=== PATIENT | female | born 1975 | race Caucasian/White ===

== ENCOUNTER 2016-12-26 14:53 | Emergency (ER) | payer BC ==
--- NOTE | 2016-12-26 15:30 | NUR ---
NO ANSWER OUT IN ER LOBBY
--- NOTE | 2016-12-26 15:58 | NUR ---
NO ANSWER OUT IN ER LOBBY
== END 2016-12-26 14:57 | disposition left against medical advice (07) ==
LOC: MED 14:53
DX: R50.9 Fever, unspecified (principal); Z53.21 Procedure and treatment not carried out due to patient leaving prior to being seen by health care provider

== ENCOUNTER 2017-05-13 11:52 | Emergency (ER) | payer SELFPAY ==
[~2017-05-13] VITALS: Ht 162.6 cm; Wt 79.2 kg
[2017-05-13 11:55] VITALS: BP 127/86
--- NOTE | 2017-05-13 12:45 | NUR ---
41/F HERE FOR RT ANKLE PAIN x TODAY @0400. PT STATES SHE ROLLED HER RT ANKLE. PAIN 6/10 ACHING NON-RADIATING. PT PLACED A BOOT TO ANKLE FOR COMFORT. DENIES HX DENIES MEDS.
[2017-05-13 13:29] VITALS: BP 110/77
--- NOTE | 2017-05-13 13:32 | NUR ---
Patient discharged with v/s stable. Written and verbal after care instructions given and explained. Patient alert, oriented and verbalized understanding of instructions. Wheel Chair Assisted with to car. All questions addressed prior to discharge. ID band removed. Patient advised to follow up with PMD. Rx of motrin given. Patient educated on indication of medication including possible reaction and side effects. Opportunity to ask questions provided and answered.
== END 2017-05-13 13:32 | disposition home or self-care (01) ==
LOC: MED 11:52
DX: S93.491A Sprain of other ligament of right ankle, initial encounter (principal); X58.XXXA Exposure to other specified factors, initial encounter; Y93.89 Activity, other specified; Y92.89 Other specified places as the place of occurrence of the external cause; Y99.8 Other external cause status
CPT/HCPCS: 73610; 99284

== ENCOUNTER 2018-04-23 07:13 | Emergency (ER) | payer BC ==
[~2018-04-23] VITALS: Ht 160 cm; Wt 81.6 kg
[2018-04-23 07:16] VITALS: BP 125/83
--- NOTE | 2018-04-23 07:23 | NUR ---
PT AMBULATES W/ STEADY GAIT TO BED 6 AT THIS TIME. REPORT GIVEN TO SALO MONET
--- NOTE | 2018-04-23 07:28 | NUR ---
42 YO F BIB SELF W/ C/O "PALPITATIONS" X THIS MORNING WITH FEELING THOUGH SHE IS GOING TO "FAINT". PT REPORTS THAT SHE HAS NOT FAINTED YET, BUT IS WORRIED. RECENTLY BEGAN SEEING [employer], BUT IS STILL IN THE FIRST "SERIES OF TESTS". PT DENIES ANY FALLS, N/V/FEVER. AAO X4, GCS 15, AMBULATORY W/ STEADY GAIT. PT DENIES ANY DIZZINESS. PULSE 84 AT THIS TIME, SPEAKING IN FULL, COMPLETE SENTENCES. LS CLEAR THROUGHOUT. ABD SOFT NON-TENDER. NO OTHER C/O AT THIS TIME. ER MD MADE AWARE. WILL CONTINUE TO MONITOR. HX DENIES RX DENIES
--- NOTE | 2018-04-23 07:30 | NUR ---
Patient being evaluated by physician at bedside.
[2018-04-23] MEDS ORDERED: ASPIRIN 81 MG TAB.CHEW PO ONE (07:35)
--- NOTE | 2018-04-23 08:13 | NUR ---
LAB AT BEDSIDE
[2018-04-23 08:27] LABS: BASOPHILS % (AUTO) 0.5 % (0.0-2.0); EOSINOPHILS # (AUTO) 0.2 K/uL (0-0.4); EOSINOPHILS % (AUTO) 1.6 % (0.0-4.0); HEMATOCRIT 41.1 % (36-48); HEMOGLOBIN 13.5 g/dL (12.0-16.0); LYMPHOCYTES # (AUTO) 4.3 K/uL (2.5-16.5); LYMPHOCYTES % (AUTO) 42.3 % (20.5-51.1); MEAN CORPUSCULAR HEMOGLOBIN 27 pg (27-31); MEAN CORPUSCULAR HGB CONC 33 g/dL (33-37); MEAN CORPUSCULAR VOLUME 82.5 fL (80-94); MONOCYTES # (AUTO) 0.6 K/uL (0.8-1.0); MONOCYTES % (AUTO) 5.5 % (1.7-9.3); NEUTROPHILS # (AUTO) 5.1 K/uL (1.8-7.7); NEUTROPHILS % (AUTO) 50.1 % (42.2-75.2); PLATELET COUNT (AUTO) 299 K/uL (140-450); RED BLOOD CELL COUNT(AUTO) 4.98 MIL/uL (4.20-5.40); RED CELL DISTRIBUTION WIDTH 13.8 % (11.6-13.7); WHITE BLOOD COUNT (AUTO) 10.2 K/uL (4.8-10.8)
--- NOTE | 2018-04-23 08:27 | NUR ---
XRAY AT BEDSIDE
[2018-04-23] MEDS ORDERED: LORazepam 1 MG TAB PO ONE (08:40)
[2018-04-23 08:55] LABS: PROTHROMBIN TIME 9.5 secs (10.8-13.4)
[2018-04-23 09:00] LABS: ALBUMIN 3.4 g/dL (3.4-5.0); ANION GAP 7.7 (8-16); CARBON DIOXIDE 25.7 mmol/L (21-32); CREATININE 0.6 mg/dL (0.6-1.3); POTASSIUM 4.4 mmol/L (3.5-5.1); TOTAL BILIRUBIN 0.1 mg/dL (0.0-1.0)
--- NOTE | 2018-04-23 09:00 | NUR ---
PT RESTING IN BED APPEARS TO BE SLEEPING IN NO APPEAREND DISTRESS, RR EVEN AND UNLABORED.
[2018-04-23 09:07] LABS: FREE T4 (FREE THYROXINE) 0.94 ng/dL (0.76-1.46); THYROID STIMULATING HORMONE 0.97 uIU/mL (0.34-3.74)
--- NOTE | 2018-04-23 09:40 | NUR ---
PT RESTING IN BED APPEARS TO BE SLEEPING IN NO APPEAREND DISTRESS, RR EVEN AND UNLABORED.
[2018-04-23 09:47] LABS: BARBITURATE, URINE NEG. ng/ml (NEG <=200); BENZODIAZEPINE, URINE NEG. ng/mL (NEG <=200); CANNABINOID, URINE NEG. ng/mL (NEG <=50); COCAINE, URINE NEG. ng/mL (NEG <=300); OPIATE, URINE NEG. ng/mL (NEG <=2000); PHENCYCLIDINE SCREEN,URINE NEG. ng/mL (NEG <=25)
[2018-04-23 10:11] VITALS: BP 120/80
--- NOTE | 2018-04-23 10:11 | NUR ---
Patient discharged with v/s stable. Written and verbal after care instructions given and explained. Patient alert, oriented and verbalized understanding of instructions. Ambulatory with steady gait. All questions addressed prior to discharge. ID band removed. Patient advised to follow up with PMD. Rx of XANEX given. Patient educated on indication of medication including possible reaction and side effects. Opportunity to ask questions provided and answered.
== END 2018-04-23 10:11 | disposition home or self-care (01) ==
LOC: MED 07:13
DX: R00.2 Palpitations (principal); F43.9 Reaction to severe stress, unspecified; F41.9 Anxiety disorder, unspecified
CPT/HCPCS: 36415; 71045; 80053; 80305; 81002; 81025; 83735; 83880; 84439; 84443; 84484; 85025; 85610; 85730; 93005; 99285; Q0092

== ENCOUNTER 2018-09-26 19:28 | Emergency (ER) | payer BC ==
[~2018-09-26] VITALS: Ht 162.6 cm; Wt 81.6 kg
[2018-09-26 19:42] VITALS: BP 122/78
--- NOTE | 2018-09-26 19:44 | NUR ---
Note undone in EDM - 09/26/18 at 2004 by MEDJ PT PRESENTS TO ED WITH TINGLING OF LIPS AND BILAT HANDS, FEELING ANCTIOUS. PT STATES HX OF DMII AND ALCOHOLISM. X4 DAY DRINKING ALIDA THAT ENDED ON 09/24/18. VSS. POSITIONED IN BED FOR COMFORT. ER AWARE. CONTINUE TO MONITOR.
--- NOTE | 2018-09-26 19:44 | NUR ---
TO BED, # 1 AMBULATORY
--- NOTE | 2018-09-26 19:44 | NUR ---
PT PRESENTS TO ED WITH COUGH X3 DAYS. PT STATES TAKING MEDICATIONS AT HOME TO RELIEVE COUGH. VSS. LUNGS CLEAR BILAT. AFEBRILE. O2SAT 99% AT RA. WHEEZING HEARD WITH COUGH. ER MD AWARE. CONTINUE TO MONITOR.
[2018-09-26 21:10] VITALS: BP 118/66
--- NOTE | 2018-09-26 21:10 | NUR ---
Patient discharged with v/s stable. Written and verbal after care instructions given and explained. Patient alert, oriented and verbalized understanding of instructions. Ambulatory with steady gait. All questions addressed prior to discharge. ID band removed. Patient advised to follow up with PMD. Rx of Promethazine and Augmentin given. Patient educated on indication of medication including possible reaction and side effects. Opportunity to ask questions provided and answered.
== END 2018-09-26 21:10 | disposition home or self-care (01) ==
LOC: MED 19:28
DX: J20.9 Acute bronchitis, unspecified (principal)
CPT/HCPCS: 99283

== ENCOUNTER 2019-01-20 07:44 | Emergency (ER) | payer BC ==
[~2019-01-20] VITALS: Ht 162.6 cm; Wt 82.7 kg
[2019-01-20 07:46] VITALS: BP 131/100
[2019-01-20] MEDS ORDERED: NACL 0.9% 1,000 ML IV ONE (08:01)
[2019-01-20] MEDS ORDERED: NACL 0.9% 1,000 ML IV SCH (08:01)
--- NOTE | 2019-01-20 08:02 | NUR ---
PT C/O OF DIZZINESS AND PALPITATION AND STATES SX RELATED TO STRESS. DENIES N/V/D; SKIN IS PINK/WARM/DRY; AAOX4 WITH EVEN AND STEADY GAIT; LUNGS CLEAR BL; HR EVEN AND REGULAR; PT DENIES ANY FEVER, CP, SOB, OR COUGH AT THIS TIME; PATIENT STATES PAIN OF 0/10 AT THIS TIME; VSS; PATIENT POSITIONED FOR COMFORT; HOB ELEVATED; BEDRAILS UP X1; BED DOWN. ER MD MADE AWARE OF PT STATUS.
[2019-01-20] MEDS ORDERED: LORazepam 1 MG TAB PO ONE (08:05)
--- NOTE | 2019-01-20 08:20 | NUR ---
PT WANTS TO HOLD ATIVAN AFTER REACHING OUT HER SON.
[2019-01-20 08:28] LABS: BASOPHILS % (AUTO) 0.4 % (0.0-2.0); EOSINOPHILS # (AUTO) 0.2 K/uL (0-0.4); HEMATOCRIT 40.4 % (36-48); HEMOGLOBIN 13.4 g/dL (12.0-16.0); LYMPHOCYTES % (AUTO) 41.4 % (20.5-51.1); MEAN CORPUSCULAR HEMOGLOBIN 27 pg (27-31); MEAN CORPUSCULAR HGB CONC 33 g/dL (33-37); MONOCYTES # (AUTO) 0.6 K/uL (0.8-1.0); MONOCYTES % (AUTO) 6.2 % (1.7-9.3); NEUTROPHILS # (AUTO) 4.9 K/uL (1.8-7.7); PLATELET COUNT (AUTO) 359 K/uL (140-450); RED BLOOD CELL COUNT(AUTO) 4.93 MIL/uL (4.20-5.40); RED CELL DISTRIBUTION WIDTH 14.1 % (11.6-13.7); WHITE BLOOD COUNT (AUTO) 9.7 K/uL (4.8-10.8)
[2019-01-20 08:37] LABS: BARBITURATE, URINE NEG. ng/ml (NEG <=200); BENZODIAZEPINE, URINE POS. ng/mL (NEG <=200); CANNABINOID, URINE NEG. ng/mL (NEG <=50); COCAINE, URINE NEG. ng/mL (NEG <=300); OPIATE, URINE NEG. ng/mL (NEG <=2000); PHENCYCLIDINE SCREEN,URINE NEG. ng/mL (NEG <=25)
[2019-01-20 08:38] LABS: BILIRUBIN,URINE NEGATIVE (NEGATIVE); BLOOD, URINE NEGATIVE (NEGATIVE); COLOR,URINE YELLOW (YELLOW); LEUKOCYTE ESTERASE ,URINE NEGATIVE (NEGATIVE); NITRITE, URINE NEGATIVE (NEGATIVE); UGLUCOSE NEGATIVE (NEGATIVE)
[2019-01-20 08:40] LABS: ANION GAP 9.9 (8-16); CREATININE 0.9 mg/dL (0.6-1.3); POTASSIUM 3.9 mmol/L (3.5-5.1)
[2019-01-20 08:45] LABS: PROTHROMBIN TIME 9.7 secs (10.8-13.4)
[2019-01-20 08:46] LABS: ALBUMIN 3.5 g/dL (3.4-5.0); MAGNESIUM 2.2 mg/dL (1.8-2.4); TOTAL BILIRUBIN 0.4 mg/dL (0.0-1.0)
[2019-01-20 08:47] LABS: APPEARANCE,URINE SLIGHTLY HAZY (CLEAR); RBC,URINE 0-5 /HPF (0-5); WBC,URINE 0-5 /HPF (0-5)
[2019-01-20 08:52] LABS: D-DIMER < 100 ng/ml (0-400)
--- NOTE | 2019-01-20 08:55 | NUR ---
PT REFUSES TO TAKE ATIVAN.
--- NOTE | 2019-01-20 10:00 | NUR ---
Patient discharged with v/s stable. Written and verbal after care instructions given and explained. Patient alert, oriented and verbalized understanding of instructions. Ambulatory with steady gait. All questions addressed prior to discharge. ID band removed. IV removed with intact and non-edemous skin. Patient advised to follow up with PMD. Rx of Vistaril given. Patient educated on indication of medication including possible reaction and side effects. Opportunity to ask questions provided and answered.
[2019-01-20 10:02] VITALS: BP 100/60
== END 2019-01-20 10:00 | disposition home or self-care (01) ==
LOC: MED 07:44
DX: F41.0 Panic disorder [episodic paroxysmal anxiety] (principal); R42 Dizziness and giddiness; R79.89 Other specified abnormal findings of blood chemistry; R79.1 Abnormal coagulation profile; F17.200 Nicotine dependence, unspecified, uncomplicated
CPT/HCPCS: 36415; 71045; 80053; 80305; 81001; 81025; 82150; 83690; 83735; 84484; 85025; 85379; 85610; 93005; 96360; 99284

== ENCOUNTER 2021-03-14 14:01 | Emergency (ER) | payer BC ==
[~2021-03-14] VITALS: Ht 162.6 cm; Wt 58.1 kg
--- NOTE | 2021-03-14 14:12 | NUR ---
PT AMBULATED TO BED 6.
[2021-03-14 14:18] VITALS: BP 128/82
--- NOTE | 2021-03-14 14:25 | NUR ---
45 Y/O F BIB SELF FROM HOME, C/O LIGHTHEADED, WEAKNESS THAT STARTED 03/12/21. PT STATED [place]VEL[place] 2 [place]EEKS AROUND 01/29/21 TO [place]. PT ALSO C/O DIARRHEA WITH LAST BM THIS MORNING. DENIES N&V, PAIN, SOB, COUGH, FEVERS AND CP. SKIN IS PINK/WARM/DRY; AAOX4 WITH EVEN AND STEADY GAIT; LUNGS CLEAR BL; HR EVEN AND REGULAR; PATIENT STATES PAIN OF 0/10 AT THIS TIME; VSS; PATIENT POSITIONED FOR COMFORT; HOB ELEVATED; BEDRAILS UP X2; BED DOWN. ER MD MADE AWARE OF PT STATUS. PMH: DENIES TASNEEM
[2021-03-14] MEDS ORDERED: NACL 0.9% 1,000 ML IV ONE (14:40)
[2021-03-14 15:03] LABS: BASOPHILS % (AUTO) 0.3 % (0.0-2.0); EOSINOPHILS # (AUTO) 0.3 K/uL (0-0.4); EOSINOPHILS % (AUTO) 2.7 % (0.0-4.0); HEMATOCRIT 40.9 % (36-48); HEMOGLOBIN 13.8 g/dL (12.0-16.0); LYMPHOCYTES # (AUTO) 2.1 K/uL (2.5-16.5); LYMPHOCYTES % (AUTO) 16.9 % (20.5-51.1); MEAN CORPUSCULAR HEMOGLOBIN 28 pg (27-31); MEAN CORPUSCULAR HGB CONC 34 g/dL (33-37); MEAN CORPUSCULAR VOLUME 82.4 fL (80-94); MONOCYTES # (AUTO) 0.7 K/uL (0.8-1.0); MONOCYTES % (AUTO) 5.6 % (1.7-9.3); NEUTROPHILS # (AUTO) 9.1 K/uL (1.8-7.7); NEUTROPHILS % (AUTO) 74.5 % (42.2-75.2); PLATELET COUNT (AUTO) 298 K/uL (140-450); RED BLOOD CELL COUNT(AUTO) 4.97 MIL/uL (4.20-5.40); RED CELL DISTRIBUTION WIDTH 14.4 % (11.6-13.7); WHITE BLOOD COUNT (AUTO) 12.3 K/uL (4.8-10.8)
--- NOTE | 2021-03-14 15:10 | NUR ---
HAYDER SWABBED AND SENT OT LAB.
[2021-03-14 15:14] LABS: ALBUMIN 3.6 g/dL (3.4-5.0); ANION GAP 12.6 (8-16); CARBON DIOXIDE 25.3 mmol/L (21-32); POTASSIUM 3.9 mmol/L (3.5-5.1); TOTAL BILIRUBIN 0.4 mg/dL (0.0-1.0)
[2021-03-14 16:42] VITALS: BP 128/82
--- NOTE | 2021-03-14 16:43 | NUR ---
Patient discharged with v/s stable. Written and verbal after care instructions given and explained. Patient verbalized understanding. Ambulatory with steady gait. All questions addressed prior to discharge. Advised to follow up with PMD.
== END 2021-03-14 16:43 | disposition home or self-care (01) ==
LOC: MED 14:01
DX: R53.1 Weakness (principal); Z20.822 Contact with and (suspected) exposure to COVID-19; D72.829 Elevated white blood cell count, unspecified; R19.7 Diarrhea, unspecified
CPT/HCPCS: 71045; 80053; 81002; 81025; 83690; 83880; 84484; 85025; 85379; 87426; 93005; 96360; 99284; U0003; J7030

== ENCOUNTER 2021-03-16 07:22 | Emergency (ER) | payer BC ==
[~2021-03-16] VITALS: Ht 162.6 cm; Wt 82.6 kg
[2021-03-16 07:25] VITALS: BP 116/74
--- NOTE | 2021-03-16 07:35 | NUR ---
Patient to bed 7 ambulatory
[2021-03-16] MEDS ORDERED: ATRO1TAB PO (07:58)
[2021-03-16] MEDS ORDERED: AZIT250T3 PO (07:58)
[2021-03-16] MEDS ORDERED: ONDA-24 PO (07:58)
--- NOTE | 2021-03-16 08:00 | NUR ---
Seen by HEMA Cardona, no nursing intervention done on patient.
[2021-03-16 08:23] VITALS: BP 116/74
--- NOTE | 2021-03-16 08:24 | NUR ---
Patient discharged with v/s stable. Written and verbal after care instructions given and explained. Patient alert, oriented and verbalized understanding of instructions. Ambulatory with steady gait. All questions addressed prior to discharge. ID band removed. Patient advised to follow up with PMD. Rx of diphenoxylate 2.5-0.025 mg 1 tab po qid, zofran 4 mg po prn q8hrs, zithromax 250 mg, 500 mg po daily given. Patient educated on indication of medication including possible reaction and side effects. Opportunity to ask questions provided and answered.
== END 2021-03-16 08:24 | disposition home or self-care (01) ==
LOC: MED 07:22
DX: R19.7 Diarrhea, unspecified (principal); R53.1 Weakness; Z79.899 Other long term (current) drug therapy
CPT/HCPCS: 81025; 99283

== ENCOUNTER 2021-08-25 08:02 | Emergency (ER) | payer BC ==
[~2021-08-25] VITALS: Ht 170.2 cm; Wt 82.1 kg
[~2021-08-25 08:02] MED LIST: ATRO1TAB PO; AZIT250T3 PO; ONDA-188 PO
[2021-08-25 08:23] VITALS: BP 150/101
--- NOTE | 2021-08-25 09:19 | NUR ---
DR LEGGETT CALLED PT N/A [id number] DR LEGGETT CALLED PT N/A [id number]-DR LEGGETT CALLED PTS CELL N/A PATIENT LEFT WITHOUT BEING SEEN BY DR. LEGGETT. NO FURTHER CARE PROVIDED FOR PATIENT.NO NURSING CARE GIVEN-ER MD DR LEGGETT GAVE
== END 2021-08-25 09:19 | disposition left against medical advice (07) ==
LOC: MED 08:02
DX: R05.9 Cough, unspecified (principal); Z53.21 Procedure and treatment not carried out due to patient leaving prior to being seen by health care provider

== ENCOUNTER 2022-12-03 08:24 | Emergency (ER) | payer BC ==
[~2022-12-03] VITALS: Ht 162.6 cm; Wt 74.8 kg
[2022-12-03 08:36] VITALS: BP 125/88
--- NOTE | 2022-12-03 09:10 | NUR ---
ASSESMENT PER FLOWSHEET. COMFORT MEASURES AND SUPPORTIVE CARE INITIATED. AIRWAY PATENT. RESP UNLAB AND EVEN. NO ADVENTITIOUS LUNG SOUNDS APPRECIATED AT THIS TIME. CONTINOUS PULSE OX PLACED AND WNL. PT STATES COUGH FOR SEVERAL DAY W/ GEN CHEST DISCOMFORT. REQUESTS CXR. ERMD ORDERS NOTED. SWABS OBTAINED FOR INFLUENZA AND COVID. TO CONTINUE PLAN OF CARE. PT AGREE W/ PLAN.
--- NOTE | 2022-12-03 10:15 | NUR ---
URINE OBTAINED AND SENT. TO CONTINUE PLAN OF CARE.
[2022-12-03 10:26] LABS: APPEARANCE,URINE CLEAR (CLEAR); BILIRUBIN,URINE NEGATIVE (NEGATIVE); BLOOD, URINE NEGATIVE (NEGATIVE); COLOR,URINE YELLOW (YELLOW); LEUKOCYTE ESTERASE ,URINE NEGATIVE (NEGATIVE); NITRITE, URINE NEGATIVE (NEGATIVE); PH,URINE 7.5 (5.0-9.0); UGLUCOSE NEGATIVE (NEGATIVE)
[2022-12-03] MEDS ORDERED: BENZ200C4 PO (11:35)
[2022-12-03] MEDS ORDERED: IBUP-2213 PO (11:37)
[2022-12-03 12:14] VITALS: BP 106/89
== END 2022-12-03 12:14 | disposition home or self-care (01) ==
LOC: MED 08:24
DX: J06.9 Acute upper respiratory infection, unspecified (principal); Z20.822 Contact with and (suspected) exposure to COVID-19
CPT/HCPCS: 71045; 81003; 87426; 87804; 99284; Q0092

== ENCOUNTER 2024-02-03 07:55 | Emergency (ER) | payer BC ==
[~2024-02-03] VITALS: Ht 160 cm; Wt 79.4 kg
[~2024-02-03 07:55] MED LIST changes: +BENZ200C4 PO; +IBUP-2213 PO
[2024-02-03 07:58] VITALS: BP 126/88; PULSE 94; RESP 20; TEMP 97.3; O2SAT 98
[2024-02-03] MEDS: NACL 0.9% 1,000 ML IV ONE (08:56)
[2024-02-03] MEDS: ONDANSETRON 4 MG/2 ML VIAL IVP ONE (08:56)
[2024-02-03 09:00] LABS: BASOPHILS % (AUTO) 0.5 % (0.0-2.0); EOSINOPHILS # (AUTO) 0.2 K/uL (0-0.4); EOSINOPHILS % (AUTO) 2.4 % (0.0-4.0); HEMATOCRIT 41.1 % (36-48); LYMPHOCYTES # (AUTO) 3.1 K/uL (2.5-16.5); LYMPHOCYTES % (AUTO) 39.4 % (20.5-51.1); MEAN CORPUSCULAR HEMOGLOBIN 28 pg (27-31); MEAN CORPUSCULAR HGB CONC 34 g/dL (33-37); MEAN CORPUSCULAR VOLUME 82.5 fL (80-94); MONOCYTES # (AUTO) 0.5 K/uL (0.8-1.0); MONOCYTES % (AUTO) 6.8 % (1.7-9.3); NEUTROPHILS % (AUTO) 50.9 % (42.2-75.2); PLATELET COUNT (AUTO) 300 K/uL (140-450); RED BLOOD CELL COUNT(AUTO) 4.98 MIL/uL (4.20-5.40); RED CELL DISTRIBUTION WIDTH 13.3 % (11.6-13.7); WHITE BLOOD COUNT (AUTO) 7.9 K/uL (4.8-10.8)
[2024-02-03 09:15] LABS: ANION GAP 11.1 (8-16); CALCIUM 9.5 mg/dL (8.5-10.1); CARBON DIOXIDE 27.9 mmol/L (21-32); CREATININE 0.9 mg/dL (0.6-1.3)
[2024-02-03 09:17] LABS: INR 0.9 (0.8-1.2); PARTIAL THROMBOPLASTIN TIME 26.2 secs (22-35.6); PROTHROMBIN TIME 9.5 secs (10.8-13.4)
[2024-02-03 09:23] LABS: ALANINE AMINOTRANSFERASE 33 U/L (12-78); ALBUMIN 3.7 g/dL (3.4-5.0); ALKALINE PHOSPHATASE 73 U/L (50-136); ASPARTATE AMINOTRANSFERASE 24 U/L (15-37); BILIRUBIN,DIRECT 0.1 mg/dL (0.0-0.3); TOTAL BILIRUBIN 0.3 mg/dL (0.0-1.0); TOTAL PROTEIN, SERUM 7.8 g/dL (6.4-8.2)
[2024-02-03 09:37] LABS: APPEARANCE,URINE CLEAR (CLEAR); BILIRUBIN,URINE NEGATIVE (NEGATIVE); BLOOD, URINE NEGATIVE (NEGATIVE); COLOR,URINE YELLOW (YELLOW); LEUKOCYTE ESTERASE ,URINE NEGATIVE (NEGATIVE); NITRITE, URINE NEGATIVE (NEGATIVE); PH,URINE 6.5 (5.0-9.0); PROTEIN,URINE NEGATIVE (NEGATIVE); UGLUCOSE NEGATIVE (NEGATIVE); UROBILINOGEN,URINE 0.2 EU/dL (0.2 - 1)
[2024-02-03] MEDS ORDERED: ONDA-188 SL (10:15)
[2024-02-03 10:37] VITALS: BP 121/76; PULSE 70; RESP 14; TEMP 98; O2SAT 94
== END 2024-02-03 10:37 | disposition home or self-care (01) ==
LOC: MED 07:55
DX: R42 Dizziness and giddiness (principal); R53.1 Weakness; R11.0 Nausea; Z79.899 Other long term (current) drug therapy
CPT/HCPCS: 36415; 71045; 80048; 80076; 81003; 81025; 83880; 84443; 84484; 85025; 85379; 85610; 85730; 93005; 96361; 96374; 99285; J2405; J7030

== ENCOUNTER 2024-03-05 11:16 | Emergency (ER) | payer BC ==
[~2024-03-05] VITALS: Ht 160 cm; Wt 81.6 kg
[~2024-03-05 11:16] MED LIST changes: +ONDA-188 SL
[2024-03-05 11:23] VITALS: BP 118/66; PULSE 64; RESP 18; TEMP 98.4; O2SAT 98
== END 2024-03-05 12:49 | disposition home or self-care (01) ==
LOC: MED 11:16
DX: S41.112D Laceration without foreign body of left upper arm, subsequent encounter (principal); Z48.00 Encounter for change or removal of nonsurgical wound dressing; Z79.899 Other long term (current) drug therapy; X58.XXXD Exposure to other specified factors, subsequent encounter
CPT/HCPCS: 99281